=== PATIENT | male | born 1960 | race Caucasian/White ===

== ENCOUNTER → 2023-06-03 07:56 | Outpatient (REF) | payer OTHER, SELFPAY | LOC: RAD 07:56 | PROVIDERS: ATTENDING PHYSICIAN Family Medicine | DX: Z00.00 Encounter for general adult medical examination without abnormal findings (principal); C61 Malignant neoplasm of prostate; N52.8 Other male erectile dysfunction; Z13.820 Encounter for screening for osteoporosis | CPT/HCPCS: 77080 ==

== ENCOUNTER → 2024-03-05 07:13 | Outpatient (REF) | payer OTHER, SELFPAY | LOC: MRI 07:13 | PROVIDERS: ATTENDING PHYSICIAN Radiology Radiation Oncology; FAMILY PHYSICIAN Family Medicine | DX: C79.51 Secondary malignant neoplasm of bone (principal) | CPT/HCPCS: 72195 ==

== ENCOUNTER → 2024-06-22 14:36 | Outpatient (REF) | payer BC, SELFPAY | LOC: MRI 14:36 | PROVIDERS: ATTENDING PHYSICIAN Radiology Radiation Oncology; PRIMARYCARE PHYSICIAN Family Medicine | DX: C79.51 Secondary malignant neoplasm of bone (principal) | CPT/HCPCS: 72195 ==